=== PATIENT | male | born 1970 | race Two or more races ===

== ENCOUNTER 2017-09-23 13:57 | Emergency (ER) | payer MEDICAID ==
[~2017-09-23] VITALS: Ht 170.2 cm; Wt 81.6 kg
[2017-09-23] MEDS ORDERED: HYDROCODONE/APAP 5/325MG 1 EACH TABLET ONE (14:49)
--- NOTE | 2017-09-23 14:49 | NUR ---
PT TO [facility]
[2017-09-23] MEDS ORDERED: HYDROCODONE/APAP 5/325MG 1 EACH TABLET PO ONE (15:00)
[2017-09-23 15:29] VITALS: BP 133/84
== END 2017-09-23 16:04 | disposition home or self-care (01) ==
LOC: ER 14:04
DX: R51 Headache (principal); R42 Dizziness and giddiness; V43.52XA Car driver injured in collision with other type car in traffic accident, initial encounter; Y93.89 Activity, other specified; Y92.413 State road as the place of occurrence of the external cause; Y99.8 Other external cause status
CPT/HCPCS: 70450-TC; A4606; Z7610